=== PATIENT | male | born 1960 | race Two or more races ===

== ENCOUNTER 2024-12-02 11:07 | Emergency (ER) | payer MEDICAID, SELFPAY ==
[2024-12-02 11:12] VITALS: BP 137/74; PULSE 61; RESP 20; TEMP 36.4; O2SAT 100
--- NOTE | 2024-12-02 11:45 | EDNOTE_ITS ---
ED General RME/HPI General Chief complaint: Weakness Stated complaint: WEAKNESS Time Seen by Provider: 12/02/24 11:43 Arrival date/time: 12/02/24 11:07 CC: Hypotension epigastric pain HPI patient presents to the ER in [facility] with 2 stairs office he after being presenting at a hearing where he complained of lightheaded and dizziness. EMS was called and reported initial blood pressure of 80 over palp. Patient was started on IV fluids on the scene and now has a blood pressure of 110. When asked the patient states due to his epigastric pain he has not been eating for the past 2 weeks he has been using Ensure but he cannot eat because he does not have any teeth. [facility]'s deputies me the patient is in the court for hearing. The patient is awake alert oriented denies any chest pain. Related Data Home Medications ?Medication ?Instructions ?Recorded ?Confirmed Unobtainable 02/11/20 02/11/20 Allergies Allergy/AdvReac Type Severity Reaction Status Date / Time No Known Allergies Allergy Verified 12/02/24 13:04 Review of Systems Review of Systems Narrative Review of Systems: GEN: No fever, no chills, no weight loss EYES: No discharge, no visual changes, no pain HEENT: No ear pain, no congestion, no sore throat PULM: No shortness of breath, no cough, no congestion CV: No chest pain, no dyspnea on exertion, no palpitations GI: No nausea, no vomiting, no diarrhea, + pain, no constipation : No frequency, no urgency, no dysuria MUSC/SKEL: No joint pain, no back pain SKIN: No rash PSYCH: No hallucinations, no depression HEME/LYMPH: No easy bleeding or bruising tendencies NEURO: No weakness, no headache Past Medical History Past Medical History CARDIAC: Negative Congestive Heart Failure RESPIRATORY: Negative Chronic Obstructive Pulmonary Disease (COPD) GENITOURINARY: Negative Renal Disease ENDOCRINE: Negative Diabetes Mellitus Type 1 or Diabetes Mellitus Type 2 Social History SMOKING STATUS: Current every day smoker ED Exam Narrative Physical exam: [General: Thin but not emaciated in mild discomfort but not in any acute distress Head normocephalic HEENT: Within acceptable limits Neck is supple nontender Chest equal chest rise nontender to palpation Respiratory: Clear to auscultation no wheezes crackles or rubs CV: Rate rhythm is regular no murmurs rubs or clicks Abdomen epigastric tenderness with palpation. No other pain in the abdomen. Back: No CVA tenderness no spinous process tenderness from cervical spine thoracic and lumbar spine Skin: Intact no petechiae rash induration ulceration or crepitus Extremities: Moving all extremity against resistance cap refill less than 2 seconds neurosensory intact Neuro: Awake alert oriented x3 Glascow coma 15 no focal deficits] Course Course Course Narrative: After liter of fluid the patient's pressures come up to 116/72. Patient's abdominal pain has decreased and the patient is constantly asking for food. Patient will be returned to the custody of the [employer]'s office. Quality Measures none Orders Category Date Time Status CBC Stat Lab 12/02/24 12:26 Completed CMP [Comprehensive Metabolic Panel] Stat Lab 12/02/24 12:26 Completed Drug Screen,Urine Stat Lab 12/02/24 13:15 Received Lipase Stat Lab 12/02/24 12:26 Completed Urinalysis Stat Lab 12/02/24 13:15 Completed Famotidine Inj [Pepcid Inj] Med 12/02/24 11:44 Discontinued 20 mg IVP X1 ONE Sodium Chloride 0.9% 1000 ml [Ns] 1,000 ml Med 12/02/24 11:44 Discontinued IV 999 mls/hr Vital Signs Vital signs: Vital Signs Temperature 97.5 F 12/02/24 11:12 Pulse Rate 61 12/02/24 11:12 Respiratory Rate 20 12/02/24 11:12 Blood Pressure 137/74 H 12/02/24 11:12 Pulse Oximetry (%) 100 12/02/24 11:12 Oxygen Delivery Method Room Air 12/02/24 11:12 Discharge Plan Plan Patient Disposition: HOME (Self Care) Patient condition on transfer: Stable Prescriptions/Referrals Prescriptions/Med Rec: No Action Unobtainable Referrals: No Primary/Family,Physician [Primary Care Provider] - In 1 week Problem List Clinical Impression: Hypotension, Dehydration Patient/Caregiver Discharge Instructions Education Materials: Dehydration Print Language: Tristanian Stand Alone Forms: Lawanda Award Info., Patient Portal Info Letter PA/WASH HOUSE WORKER Supervising Physician PA/WASH HOUSE WORKER Supervising Physician: Sherman Sher ENP [facility] Clinical Information Provided by: patient, EMS and law enforcement Medical Records reviewed [facility] and EMS Meds/Rx considered, not ordered None Labs/Rad/Tests considered, not ordered None Labs Lab(s) Interpretation(s): CBC shows no leukocytosis and H&H of 9.9 and 28.9 respectively no old for comparison. Platelets within acceptable limits CMP shows sodium 131 no other significant electrolyte imbalances no renal impairment transaminitis T. bili 8.2 lipase at 75. Urine is negative Medication Administration(s) Medication Administration History Discontinued Medications Famotidine (Famotidine Inj 10 Mg/Ml Vial 2 Ml) 20 mg IVP X1 ONE Stop: 12/02/24 11:45 Last Admin: 12/02/24 12:50 Dose: 20 mg Documented By: LP Sodium Chloride (Ns) 1,000 mls @ 999 mls/hr IV .Q1H1M ONE Stop: 12/02/24 12:44 Last Admin: 12/02/24 12:51 Dose: 999 mls/hr Documented By: LP
[2024-12-02 12:34] LABS: Basophils % (Auto) 1 % (0-2.5); Eosinophils # (Auto) 0.1 Thou/mm3 (0.0-0.5); Eosinophils % (Auto) 1 % (0-10); Hematocrit 28.9 % (41.0-53.0); Hemoglobin 9.9 g/dL (13.5-16.0); Immature Granulocytes % (Auto) 0 % (0-0); Immature Granulocytes Auto 0.02 Thou/mm3 (0.00-0.00); Lymphocytes # (Auto) 1.4 Thou/mm3 (1.0-4.8); Lymphocytes % (Auto) 19 % (10-50); Mean Corpuscular HGB Conc 34.3 g/dl (31.0-37.0); Mean Corpuscular Hemoglobin 29.4 pg (25.0-35.0); Mean Corpuscular Volume 86 fL (80-100); Monocytes # (Auto) 0.6 Thou/mm3 (0.0-0.8); Monocytes % (Auto) 8 % (0-12); Neutrophils # (Auto) 5.1 Thou/mm3 (1.8-7.7); Neutrophils % (Auto) 71 % (37-80); Nucleated Red Blood Cell % 0 /100 WBC (0); Platelet Count 306 Thou/mm3 (140-440); RDW Standard Deviation 48.5 fL (35.1-43.9); Red Blood Count 3.37 Miln/mm3 (4.50-5.90); White Blood Count 7.2 Thou/mm3 (3.8-10.6)
[2024-12-02 12:45] VITALS: BP 118/70; PULSE 65; RESP 16; TEMP 36.8; O2SAT 99
[2024-12-02] MEDS: FAMOTIDINE INJ 10 MG/ML VIAL 2 ML 20 MG IVP (12:50)
[2024-12-02] MEDS: SODIUM CHLORIDE 0.9% 1000 ML 1,000 ML 999 ML IV (12:51)
[2024-12-02 12:54] LABS: Alanine Aminotransferase 26 U/L (10-49); Albumin, Serum 3.6 gm/dL (3.4-4.8); Albumin/Globulin Ratio 1.3 (1.2-2.2); Alkaline Phosphatase 82 U/L (46-116); Anion Gap 2 (7-16); Aspartate Amino Transferase 28 U/L (0-34); BUN/Creatinine Ratio 38 Ratio (12-20); Bilirubin,Total 0.2 mg/dL (0.3-1.2); Blood Urea Nitrogen 23 mg/dL (9-23); Calcium 8.4 mg/dL (8.3-10.6); Calcium (Corrected) 8.7 mg/dL (8.5-10.1); Chloride 100 mMol/L (98-107); Creatinine (Component) 0.6 mg/dL (0.6-1.3); Globulin 2.7 gm/dL (2.3-3.5); Glucose 91 mg/dL (74-106); Osmolality,Calculated 266 (275-295); Potassium 4.2 mMol/L (3.4-5.1); Sodium 131 mMol/L (136-145); Total Protein 6.3 gm/dL (5.7-8.2); eGFR > 60 See Note
[2024-12-02 13:04] VITALS: PULSE 77; O2SAT 98; BMI 20.7
[2024-12-02 13:21] VITALS: BP 128/75; PULSE 63; RESP 14; TEMP 36.4; O2SAT 98
[2024-12-02 13:26] LABS: Collection Type, Urine Clean Catch; Squamous Epithelial Cell,Urine 0 /hpf (0-5)
[2024-12-02 13:35] LABS: Bilirubin,Urine Negative (Negative); Blood,Urine Negative (Negative); Clarity,Urine Clear (Clear/Hazy); Color,Urine Lt-Yellow (Lt Yel-Yel); Glucose, Urine Negative (Negative); Ketones,Urine Negative (Negative); Leukocyte Esterase,Urine Negative (Negative); Nitrite,Urine Negative (Negative); PH,Urine 6.5 (5.0-7.0); Protein,Urine Negative (Neg - Trace); RBC,Urine 2 /hpf (0-3); Specific Gravity,Urine 1.025 (1.001-1.035); Urobilinogen,Urine Negative mg/dL (0.0-1.0); WBC,Urine < 1 /hpf (0-5)
[2024-12-02 13:45] LABS: Lipase 75 U/L (12-53)
[2024-12-02 15:20] VITALS: BP 123/91; PULSE 75; RESP 20; TEMP 36.7
--- NOTE | 2024-12-02 15:42 | PC.NURSE ---
PT DISCHARGED W/ [facility]IC[facility] VIA [facility]; PT AMB TO [facility] EX[facility]. IV DC'D W/O DIFFICULTY; FELISHA WELL. D/C INST GIVEN TO PT AND [facility] OFFICER W/ UNDERSTANDING EXPRESSED AND QUESTIONS ANSWERED.
[2024-12-02 16:05] LABS: Amphetamine/Methamp Scrn,U Negative (Negative); Barbiturate Screen,Urine Negative (Negative); Benzodiazepines Screen,Urine Negative (Negative); Benzoylecgonine Screen, Ur Negative (Negative); Fentanyl Screen,Urine Negative (Negative); Opiate Screen,Urine Negative (Negative); THC Screen,Urine Negative (Negative)
== END 2024-12-02 15:20 | disposition home or self-care (01) ==
PROVIDERS: Registered Nurse General Practice; Emergency Provider Emergency Medicine
DX: E86.0 Dehydration (principal); I95.9 Hypotension, unspecified
CPT/HCPCS: 36415; 80053; 80307; 81001; 83690; 85025; 96361; 96374; 99284; J3490; J7030

== ENCOUNTER 2024-12-25 00:44 | Emergency (ER) | payer OTHER, SELFPAY ==
[2024-12-25 00:53] VITALS: BP 84/57; PULSE 70; RESP 16; TEMP 36.8; O2SAT 98
--- NOTE | 2024-12-25 00:56 | XR_ITS ---
Examination: Duplex scan of the lower extremity, unilateral left complete Date and time of exam: Dec 25 2024 0106 hours INDICATIONS: Left leg swelling beginning 2 months ago Technique: Duplex scan of the extremity veins using B-mode/grayscale imaging and Doppler spectral analysis and color flow Attention is directed to internal echogenicity, compression and augmentation involving these veins, color flow assessment, spectral analysis Findings: Major deep venous structures in the extremity demonstrate normal course and caliber. There is no evidence of deep vein thrombosis. Normal color flow and spectral analysis Impression: Negative for DVT..
--- NOTE | 2024-12-25 02:03 | EDNOTE_ITS ---
ED Extremity Problem RME/HPI General Chief complaint: Extremity Problem,Nontraumatic Stated complaint: RULE OUT DVT TO LEFT LEG/FOOT SWOLLEN Time Seen by Provider: 12/25/24 01:23 Arrival date/time: 12/25/24 00:44 RME / HPI RME / HPI Narrative: This section includes all my notes and documentations, including HPI, PE, and ED course. Maurisio Tripp MD HPI: 64 y/o male with Hx of Gall Bladder Disease presents to ED BIB [facility] c/o left leg swelling x approximately 1 month. No chest pain or shortness of breath. No other complaints. ROS: All negative except as documented in HPI. Physical Exam: General: Alert and oriented. Eyes: Conjunctivae and lids clear. ENT: No nasal congestion. Neck: Supple. Lungs: No respiratory distress. Skin: Warm and dry. Neuro: Alert and oriented X 3. Legs: Left lower leg remarkable for moderate edema. No erythema or calor or tenderness. I reviewed all diagnostic test results. My review of the Venous Doppler Study report is no DVT. At this point, diagnoses include lymphedema. Recommended supportive care. Based on my best medical judgment, made decision no further evaluation or treatment indicated at this time. Patient understands and agrees to the sho aburto instructions customized and printed, see below. Discharge Instructions from Dr. Tripp printed for you: 1. Fortunately, there is no DVT (blood clots) which can be life-threatening. 2. Your swelling is from lymphedema. See attached handout. Blockage in your lymphatic system (which transports fluid) causes swelling. 3. When resting or sitting or sleeping, elevate your feet/ankles above your waist level. This is extremely important. 4. See a private doctor on 12/26/2024 or whenever you are released for recheck and further care. Ask for help until you are completely better. 5. Seek immediate medical care with worsening or with any concerns. Maurisio Tripp MD Related Data Home Medications ?Medication ?Instructions ?Recorded ?Confirmed Unobtainable 02/11/20 02/11/20 Allergies Allergy/AdvReac Type Severity Reaction Status Date / Time No Known Allergies Allergy Verified 12/02/24 13:04 Review of Systems Review of Systems Systems Reviewed: All systems reviewed, normal except as documented Past Medical History Past Medical History GASTROINTESTINAL: Positive Gastrointestinal Disorders and Gall Bladder Disease GENITOURINARY: Positive Genitourinary Disorders ED Exam Narrative Physical exam: Refer to HPI above Course Quality Measures none Orders Category Date Time Status US venous doppler LE LT Stat Exams 12/25/24 00:56 Taken Vital Signs Vital signs: Vital Signs Temperature 98.3 F 12/25/24 00:53 Pulse Rate 70 12/25/24 00:53 Respiratory Rate 16 12/25/24 00:53 Blood Pressure 84/57 L 12/25/24 00:53 Pulse Oximetry (%) 98 12/25/24 00:53 Oxygen Delivery Method Room Air 12/25/24 00:53 Extremity Problem MDM Narrative MDM Narrative:: Scribe Attestation: Rosa Maria Arias, am scribing for and in the presence of Dr. Tripp. Provider Notation: Although this document has been carefully reviewed, there may still be some phonetic and other typographical errors.? These errors are purely grammatical due to imperfections in the software program and should not be construed in any way to? compromise the substance of the patient's medical care during this visit. 64 y/o male with Hx of Gall Bladder Disease presents to ED BIB [facility] c/o left leg swelling x approximately 1 month. No other complaints. Patient data External records reviewed:: [facility] previous records and Other (specify) ([facility]) Clinical information provided by:: patient and law enforcement Social determinants that could affect healthcare access:: housing (Incarceration) Patient has the following chronic illnesses:: Gall Bladder Disease How is presenting disease/condition affected by chronic disease/condition?: uneffected by Evaluation data The following diagnostics were reviewed and interpreted by me:: radiology exam(s) Lab and/or radiology exams considered but not ordered:: None Interpretation Summary: I reviewed all diagnostic test results. My review of the Venous Doppler Study report is no DVT. Medications / Prescriptions Medications or Prescriptions considered but not ordered:: None Medication administrations:: N/A Consultations Consultation(s) initiated? (list below): No Diagnosis Extremity Problem Differential Diagnosis: cellulitis, superficial thrombophlebitis, lower extremity edema and deep vein thrombosis of lower extremity Most likely diagnosis given after review of the tests above:: Lymphedema Admission Indicated Admission indicated?: not indicated Explain why admission is indicated or not indicated:: There was no indication for admission. Admission Request Was there a request for admission?: No Disposition Plan Disposition Plan: Discharge (To [facility] for incarceration) Discharge Attestation Discharge Attestation: The patient and all family members were given an opportunity to ask questions and understood the discharge instructions. Discharge instructions specifically effects, indications for sooner follow up or return to the emergency department, and the expected course of current diagnosis. Patient condition: Stable Discharge Plan Plan Patient Disposition: Correction/Court/Law Prescriptions/Referrals Prescriptions/Med Rec: No Action Unobtainable Problem List Clinical Impression: Edema of left lower leg Patient/Caregiver Discharge Instructions Discharge Activity: activity as tolerated Education Materials: ED Lymphedema Additional Instructions: Discharge Instructions from Dr. Tripp printed for you: 1. Fortunately, there is no DVT (blood clots) which can be life-threatening. 2. Your swelling is from lymphedema. See attached handout. Blockage in your lymphatic system (which transports fluid) causes swelling. 3. When resting or sitting or sleeping, elevate your feet/ankles above your waist level. This is extremely important. 4. See a private doctor on 12/26/2024 or whenever you are released for recheck and further care. Ask for help until you are completely better. 5. Seek immediate medical care with worsening or with any concerns. Print Language: Cook Islander
--- NOTE | 2024-12-25 02:08 | PRELIM_ITS ---
Left lower extremity venous Doppler ultrasound with wave Doppler spectral analysis. December 25, 2024 at 0106 hours Clinical history: Edema Technique: Duplex scan of the left lower extremity deep venous systems was performed utilizing 2D grayscale imaging, Doppler spectral analysis and color flow Doppler and with compression. Comparison: None. Findings: Foley scale, color flow and spectral Doppler evaluation of the left lower extremity deep veins was performed. The common femoral, superficial femoral and popliteal veins are patent and compressible. Normal respiratory variation is noted. There is no evidence of occlusive or nonocclusive thrombus. The great saphenous vein is patent and compressible at the level of the saphenofemoral junction. Lymph node in the area of the common femoral vein region measures 2.6 x 1.0 x 2.1 cm. Impression: No sonographic evidence of deep venous thrombosis in the left lower extremity. Lymph node in the area of the common femoral vein region, of uncertain etiology. Report Electronically Signed By: Chaparro Duarte 12/25/2024 2:08:08 AM [EST]
[2024-12-25 02:14] VITALS: BP 112/64; PULSE 70; RESP 16; O2SAT 100
== END 2024-12-25 02:21 ==
PROVIDERS: Emergency Provider Emergency Medicine; PCP Family Medicine
DX: R60.0 Localized edema (principal)
CPT/HCPCS: 93971; 99284